=== PATIENT | female | born 1985 | race Caucasian/White ===

== ENCOUNTER 2021-05-09 00:13 | Emergency (ER) | payer OTHER, SELFPAY ==
--- NOTE | ~2021-05-09 | CT_ITS ---
EXAMINATION: CT brain wo con, CT cervical spine wo con EXAM DATE: 05/09/2021 03:55 (accession [id number]), 05/09/2021 03:56 (accession [id number]) INDICATION: Head injury right forehead wound. TECHNIQUE: Spiral CT of the head was performed without contrast. Axial, coronal and sagittal images were reviewed. Spiral CT of the cervical spine was performed without contrast. Axial images were rev iewed. Coronal and sagittal reformatted images were also reviewed. The dose-length product (DLP) fo r this examination was 605.33 (accession [id number]), 283.40 (accession [id number]) mGy-cm. The exposure was tailored according to patient size, and iterative reconstruction (ASIR) was used as additional dose reduction technique. There is no prior study for comparison. FINDINGS: HEAD CT: There is no acute intraparenchymal hemorrhage. No evidence of intraparenchymal brain mass l esion. No evidence of acute infarction. There is no mass effect or midline shift. There is no obstru ctive hydrocephalus suspected. There are no extra-axial collections. There are no acute calvarial f ractures. The orbits are unremarkable. Soft tissue is unremarkable. The visualized sinuses and mas toid air cells are well aerated. CERVICAL CT: There is no evidence of acute cervical fracture. The odontoid process is intact. Pre- dens space is normal. Prevertebral soft tissue is normal. There are no soft tissue abnormalities id entified. There is no disc space widening or traumatic vertebral body subluxation suspected. Verteb ral body and disc heights are well-maintained. A detailed level by level evaluation of spondylosis can be added as addendum if requested. IMPRESSION: 1. No acute intracranial findings or cervical fracture. Reviewed, dictated and finalized at location A. IMPRESSION: 1. No acute intracranial findings or cervical fracture.
[2021-05-09 00:22] VITALS: BP 128/81; PULSE 91; RESP 15; TEMP 36.6; O2SAT 99
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
[2021-05-09 03:19] VITALS: BP 104/80; PULSE 76; RESP 16; O2SAT 99
[2021-05-09] MEDS: TETANUS,DIPHTHERIA,AC PERTUSSIS ADULT (0.5 ML) BOOSTRIX IM (03:20)
--- NOTE | 2021-05-09 03:40 | PC.NURSE ---
Pt to imaging at this time
[2021-05-09 05:12] VITALS: BP 110/66; PULSE 66; RESP 16; O2SAT 100
== END 2021-05-09 05:16 | disposition home or self-care (01) ==
PROVIDERS: Emergency Provider Emergency Medicine
DX: S01.83XA Puncture wound without foreign body of other part of head, initial encounter (principal); Z23 Encounter for immunization; Y04.2XXA Assault by strike against or bumped into by another person, initial encounter
CPT/HCPCS: 12011; 70450; 72125; 90471; 90715; 99284

== ENCOUNTER 2024-02-18 12:07 | Outpatient (CLI) | payer OTHER, SELFPAY ==
[2024-02-18 12:29] LABS: Basophils Absolute Auto 0.02 K/mm3 (0.00-0.10); Basophils Percent Auto 0.4 % (0.0-1.0); Eosinophils Absolute Auto 0.04 K/mm3 (0.02-0.50); Eosinophils Percent Auto 0.8 % (1.0-6.0); Hematocrit 38.7 % (35.0-49.0); Hemoglobin 12.8 g/dL (12.0-15.0); Immature Granulocyte Absolute 0.02 K/mm3 (0.00-0.00); Immature Granulocyte Percent A 0.4 % (0.0-0.0); Lymphocytes Absolute Auto 1.52 K/mm3 (1.10-4.50); Mean Corpuscular HGB Conc 33.1 g/dL (32-36); Mean Corpuscular Volume 90.6 fL (78.0-102.0); Mean Platelet Volume 10.2 fl (9.2-11.8); Monocytes Absolute Auto 0.46 K/mm3 (0.10-0.90); Monocytes Percent Auto 9.4 % (2.0-11.0); Neutrophils Absolute Auto 2.84 K/mm3 (1.70-7.20); Platelet Count Result 217 K/mm3 (150-420); Red Blood Count 4.27 M/mm3 (4.20-5.40); Red Cell Distribution Width 11.9 % (11.6-14.4); White Blood Count 4.9 K/mm3 (4.8-10.8)
[2024-02-18 12:30] LABS: Appearance Urine Clear (Clear); Bilirubin Urine Negative (Negative); Blood Urine Negative (Negative); Color Urine Light Yellow (Yellow); Glucose Urine UA Negative (Negative); Ketones Urine Negative (Negative); Leukocyte Esterase Ur Negative (Negative); Nitrate Urine Negative (Negative); Protein Urine Negative (Negative); Specific Grav Ur 1.025 (1.010-1.020); Urobilinogen Urine 0.2 mg/dL (0.2-1.0)
[2024-02-18 12:34] LABS: Add Urine Microscopic? NO
[2024-02-18 12:40] LABS: Creatinine Urine 95.06 mg/dL (40-278); MALB Creatinine Ratio 13.6 mg/g (0-30); Microalbumin Urine Random < 13.0 mg/L
[2024-02-18 13:21] LABS: Alanine Aminotransferase 46 U/L (14-59); Albumin Level 3.7 g/dL (3.4-5.0); Alkaline Phosphatase 56 U/L (46-116); Anion Gap 7 mmol/L (4-12); Aspartate Amino Transferase 33 U/L (15-37); Bilirubin,Total 0.3 mg/dL (0.00-1.00); Blood Urea Nitrogen 23 mg/dL (7-18); Calcium 8.8 mg/dL (8.5-10.1); Carbon Dioxide 29 mmol/L (21-32); Chloride 102 mmol/L (98-108); Estimated Glomerular Filt Rate > 60; Ferritin 24 ng/mL (8-252); Glucose 94 mg/dL (70-99); Iron 81 ug/dL (50-170); Osmolality Calculated 289 mOsm/kg (285-295); Percent Iron Saturation 23 % (12-57); Potassium 4.2 mmol/L (3.5-5.1); Sodium 138 mmol/L (136-145); Total Protein 7.2 g/dL (6.4-8.2)
== END 2024-02-18 12:08 | disposition home or self-care (01) ==
LOC: CHSLAB 12:09
PROVIDERS: PCP Family Medicine; Visit Provider Family Medicine
DX: E61.1 Iron deficiency (principal); E88.09 Other disorders of plasma-protein metabolism, not elsewhere classified
CPT/HCPCS: 36415; 80053; 81003; 82043; 82728; 83540; 83550; 85025

== ENCOUNTER 2024-08-29 12:32 | Emergency (ER) | payer OTHER, SELFPAY ==
[2024-08-29 12:32] VITALS: BP 115/77; PULSE 75; RESP 16; TEMP 36.6; O2SAT 99
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
[2024-08-29 13:13] VITALS: RESP 18; O2SAT 98
== END 2024-08-29 13:13 | disposition home or self-care (01) ==
PROVIDERS: Emergency Provider Internal Medicine Critical Care Medicine
DX: T25.11 Burn of first degree of ankle (principal); T31.0 Burns involving less than 10% of body surface; W29.2XXD Contact with other powered household machinery, subsequent encounter
CPT/HCPCS: 99283

== ENCOUNTER 2025-04-13 22:02 | Observation (INO) | payer SELFPAY ==
--- NOTE | ~2025-04-13 | CT_ITS ---
EXAMINATION: CT facial & cervical spine wo DATE: 04/13/2025 22:42 INDICATION: Head injury. TECHNIQUE: Computed tomography (CT) of the maxillofacial region and cervical spine was performed without intravenous contrast. Automated exposure control and iterative reconstruction technique were employed. The dose-length product was 288.12 mGy-cm. COMPARISON: CT cervical spine 05/09/2021 FINDINGS: MAXILLOFACIAL CT: There is mild mucosal thickening in the paranasal sinuses. The mastoid air cells are normal. There is rightward deviation of the nasal septum. No fracture. CERVICAL SPINE CT: There are nodules in the thyroid measuring up to 17 mm. There is hypolordosis of cervical spine. Vertebral body heights are normal. Intervertebral disc heights are normal. There is multilevel facet joint osteoarthritis, severe at multiple levels. There is mild neural foraminal stenosis at multiple levels. On the left, there is moderate neural foraminal stenosis at C3-C4. There is no central canal stenosis. IMPRESSION: 1. No fracture. 2. Moderate left neural foraminal stenosis at C3-C4. Otherwise mild cervical spondylosis. 3. Multinodular goiter. Consider thyroid ultrasound for risk stratification. Reviewed, dictated and finalized at location E. IMPRESSION: 1. No fracture. 2. Moderate left neural foraminal stenosis at C3-C4. Otherwise mild cervical sp ondylosis. 3. Multinodular goiter. Consider thyroid ultrasound for risk stratification.
--- NOTE | ~2025-04-13 | CT_ITS ---
EXAMINATION: CT brain wo con DATE: 04/13/2025 22:41 INDICATION: Head injury. TECHNIQUE: Computed tomography (CT) of the head was performed without intravenous contrast. The mA was adjusted according to patient size. Iterative reconstruction technique was employed. The dose-length product was 681.00 mGy-cm. COMPARISON: Head CT 05/09/2021 FINDINGS: There is no intracranial hemorrhage, acute infarction, or abnormal intracranial mass lesion. The ventricles are normal in size. The paranasal sinuses are clear. The orbits are normal. The mastoid air cells are normal. IMPRESSION: 1. Normal brain. Reviewed, dictated and finalized at location E. IMPRESSION: 1. Normal brain.
[2025-04-13 22:04] VITALS: BP 128/91; PULSE 98; RESP 20; TEMP 36.6; O2SAT 97
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
[2025-04-13] MEDS: ACETAMINOPHEN 500 MG TABLET 1000 MG PO (22:40)
--- NOTE | 2025-04-13 22:51 | PC.NURSE ---
pt mother at bedside at this time. update provided. pt mother states pt is confused and repeating herself. Pt asked for medication for her headache, RN reminded pt she was just given acetaminophen. call light within reach. ERP aware as this is how patient presented upon arrival.
--- NOTE | 2025-04-13 22:59 | PC.NURSE ---
pt sister at bedside at this time.
[2025-04-13 23:55] VITALS: BP 108/68; PULSE 79; RESP 18; TEMP 36.9; O2SAT 97
--- NOTE | 2025-04-14 00:10 | PC.NURSE ---
ERP at pt bedside providing update of results and plan of care. sister and mother at bedside, education provided.
[2025-04-14 00:33] VITALS: BMI 24.6
--- NOTE | 2025-04-14 00:40 | ADMGEN ---
This patient, Odette Lobato, was admitted to 2nd Floor Room 209-1. Patient oriented to hospital policies and general routines including ID bracelet, bed and alarms, visiting hours, pain management, procedures, bathroom and other care routines, personal items, smoking policy, room service/diet, and visiting hours. Information on how to activate the Rapid Response Team has been discussed. Patient are encouraged to report perceived risks to care and to ask questions if they do not understand what they are told or what they should do.
[2025-04-14 00:45] VITALS: PULSE 79; RESP 18; O2SAT 97
[2025-04-14] MEDS: ACETAMINOPHEN 325 MG TABLET 650 MG PO ×2 (00:48→05:22)
[2025-04-14 00:55] VITALS: PULSE 79; RESP 18; O2SAT 97
[2025-04-14 01:00] VITALS: BP 107/55; PULSE 76; RESP 16; TEMP 36.7; O2SAT 96
[2025-04-14 08:00] VITALS: BP 100/60; PULSE 75; RESP 18; TEMP 36.6; O2SAT 98
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
== END 2025-04-14 11:55 | disposition home or self-care (01) ==
LOC: CHSED 04-14 00:19 → CHS2ND 04-14 07:18
PROVIDERS: Admitting Provider Internal Medicine; Emergency Provider Emergency Medicine; Referring Provider Internal Medicine; Visit Provider Internal Medicine
DX: S06.0X1A Concussion with loss of consciousness of 30 minutes or less, initial encounter (principal); Y04.2XXA Assault by strike against or bumped into by another person, initial encounter
CPT/HCPCS: 70450; 70486; 72125; 99285; A9270; G0378